=== PATIENT | female | born 1950 | race Caucasian/White ===

== ENCOUNTER 2016-06-21 08:47 | Emergency (ER) | payer MEDICARE ==
[~2016-06-21] VITALS: Ht 160 cm; Wt 58.1 kg
[2016-06-21 08:49] VITALS: BP_SYST 99
[2016-06-21] MEDS ORDERED: NACL 0.9% 1,000 ML IV SCH (08:49)
--- NOTE | 2016-06-21 08:49 | NUR ---
Pt report received from GUSTAVO Diane. Pt AAOx4, even and non-labored respirations, BBS clear. No needs verbalized at this time.
--- NOTE | 2016-06-21 08:49 | NUR ---
Arrived via [facility] ambulance for weakness x 1 day. Patient had a recent history of whipple procedure with two active drain sites, the right drain in draining copious serosanginous drainage: 740mL in last 24 hours. Left drain with purulent drainage 100mL in last 24 hours. Placed in room 6 . Placed on personal lines account executive, blood pressure machine and pulse oximeter. To gown for exam. Side rails up. Report given to Ramírez CHEN.
--- NOTE | 2016-06-21 08:55 | NUR ---
Dr. Mcguire at bedside to assess pt.
--- NOTE | 2016-06-21 09:00 | NUR ---
Unsuccessful PIV attempts x 3 to LFA and RFA.
--- NOTE | 2016-06-21 09:05 | NUR ---
Lab at bedside. Blood specimen collected.
[2016-06-21 09:17] LABS: RED CELL DISTRIBUTION WIDTH 16.3 % (9.0-15.0)
[2016-06-21 09:24] LABS: HEMATOCRIT 23.3 % (36-48); HEMOGLOBIN 7.7 g/dL (12.0-16.0); MEAN CORPUSCULAR HEMOGLOBIN 28 pg (27-31); MEAN CORPUSCULAR HGB CONC 33 % (32-36); MEAN CORPUSCULAR VOLUME 84 fL (79.0-98.0); RED BLOOD CELL COUNT(AUTO) 2.78 MIL/uL (4.2-6.2)
[2016-06-21 09:25] LABS: CALCIUM 7.1 mg/dL (8.4-11.0); CREATININE 0.62 mg/dL (0.55-1.30); POTASSIUM 4.1 mmol/L (3.5-5.1)
[2016-06-21 09:26] LABS: PLATELET COUNT (AUTO) 1249 K/uL (130-430)
[2016-06-21 09:30] LABS: INR 1.1 (0.8-1.2); PROTHROMBIN TIME 12.4 SECS (9.5-12.5)
[2016-06-21 09:44] LABS: BASOPHILS % (MANUAL) 0 % (0-2); EOSINOPHILS % (MANUAL) 0 % (0-7); LYMPHOCYTES % (MANUAL) 12 % (20-46); MONOCYTES % (MANUAL) 5 % (0-11)
[2016-06-21 09:50] LABS: ALBUMIN 1.4 g/dL (3.4-4.8); TOTAL BILIRUBIN 0.3 mg/dL (0.0-1.0); TOTAL PROTEIN, SERUM 5.3 g/dL (6.4-8.3)
[2016-06-21] MEDS ORDERED: AZITHROMYCIN 500 MG in NS 250 ML IV ONE (10:15)
[2016-06-21] MEDS ORDERED: cefTRIAXone 1 GM IVPB PREMIX 50 ML IV ONE (10:15)
[2016-06-21] MEDS ORDERED: AZITHROMYCIN 500 MG/VIAL (ZITHROMAX) IV ONE (10:24)
--- NOTE | 2016-06-21 10:50 | NUR ---
Drain to Right Abdomen emptied with 150 mL serous fluid. Drain to Left Abdomen emptied with 200 mL purulent fluid.
[2016-06-21] MEDS ORDERED: MAGNESIUM SULFATE 1 GM in NS 100 ML IV ONE (11:00)
--- NOTE | 2016-06-21 11:30 | NUR ---
Drain to Right Abdomen emptied, 100 mL serosanguinos fluid.
[2016-06-21] MEDS ORDERED: KETOROLAC TROMETHAMINE 30 MG VIAL IVP ONE (11:45)
--- NOTE | 2016-06-21 12:00 | NUR ---
Dr. Mcguire at bedside to discuss POC.
--- NOTE | 2016-06-21 12:24 | NUR ---
Patient to be transferred to [facility] ER. Is being transferred due to higher level of care. Receiving facility has accepting physician and available space. ER physician has signed transfer form. Patient or responsible libertarian has agreed to transfer and signed form. Patient belongings inventoried and will be sent with patient. Copy of nursing notes, lab reports, EKG, Physicians Orders and X-rays to be sent with patient. Report to be called to [phone] at receiving facility. Receiving physician is Dr. Mark Sheikh. ALS ambulance service has been called for transfer. ETA is 1300.
--- NOTE | 2016-06-21 12:24 | NUR ---
Patient resting quietly. No acute distress noted. IVF infusing to LUE with no s/sx of infiltration.
--- NOTE | 2016-06-21 12:39 | NUR ---
Pt report given to GUSTAVO Elmore at [facility].
[2016-06-21 13:06] LABS: BILIRUBIN,URINE NEGATIVE (NEGATIVE); BLOOD, URINE NEGATIVE (NEGATIVE); CLARITY/URINE CLEAR (CLEAR); COLOR,URINE YELLOW (YELLOW); GLUCOSE,URINE NEGATIVE (NEGATIVE); KETONES,URINE 3+ (NEGATIVE); LEUKOCYTE ESTERASE ,URINE NEGATIVE (NEGATIVE); NITRITE, URINE NEGATIVE (NEGATIVE); PH,URINE 6.5 (5.0-8.0); PROTEIN URINE TRACE (NEGATIVE); UROBILINOGEN,URINE 0.2 (0.2-1.0)
[2016-06-21 13:17] LABS: BACTERIA,URINE FEW /HPF (None Seen); RBC,URINE NONE SEEN /HPF (0-3); WBC,URINE NONE SEEN /HPF (0-3)
[2016-06-21 13:18] LABS: MUCUS,URINE None Seen /LPF (None Seen)
[2016-06-21 13:35] VITALS: BP_SYST 97
--- NOTE | 2016-06-21 13:35 | NUR ---
Pt leaves in [facility]/o [facility] via stretcher. Pt transferred to [facility].
== END 2016-06-21 13:35 | disposition short-term general hospital (02) ==
LOC: SED 08:47
DX: J18.1 Lobar pneumonia, unspecified organism (principal); J91.8 Pleural effusion in other conditions classified elsewhere; Z88.0 Allergy status to penicillin
CPT/HCPCS: 36415; 71010; 80053; 81000; 83605; 84484; 85007; 85027; 85610; 85730; 87040; 93005; 96365; 96368; 96375; 99285; J0456; J0696; J1885; J7030; J7050